=== PATIENT | male | born 1980 | race Hispanic/Latino ===

== ENCOUNTER 2017-06-23 18:54 | Emergency (ER) | payer SELFPAY | END 2017-06-23 20:27 | disposition left against medical advice (07) | LOC: ERS 18:54 | DX: Z53.21 Procedure and treatment not carried out due to patient leaving prior to being seen by health care provider (principal) ==

== ENCOUNTER 2017-08-20 05:29 | Emergency (ER) | payer SELFPAY ==
[2017-08-20] MEDS ORDERED: Ketorolac Tromethamine 60 MG/2 ML VIAL ONE (06:21)
== END 2017-08-20 06:35 | disposition home or self-care (01) ==
LOC: ERS 05:29
DX: K02.9 Dental caries, unspecified (principal); F17.210 Nicotine dependence, cigarettes, uncomplicated
CPT/HCPCS: 96372; J1885

== ENCOUNTER 2018-11-10 13:54 | Emergency (ER) | payer SELFPAY ==
[2018-11-10] MEDS ORDERED: Metoclopramide HCl 10 MG/2 ML VIAL ONE (14:25)
[2018-11-10] MEDS ORDERED: diphenhydrAMINE 50 MG/ML VIAL ONE (14:25)
[2018-11-10 14:43] LABS: #Basophils 0.1 thou/uL (0.0-0.2); #Eosinphils 0.3 thou/uL (0.0-0.7); #Monocytes 0.5 thou/uL (0.11-0.59); #Neutrophils 4.5 thou/uL (1.40-6.50); %Basophils 1.2 % (0.0-1.0); %Eosinophils 4.5 % (0.0-10.0); %Monocytes 7.2 % (0.0-10.0); Hemoglobin 13.5 g/dL (14.0-18.0); Mean Corpuscular HGB CONC 33.6 g/dL (32.0-36.0); Mean Corpuscular Hemoglobin 30.2 pg (27.0-31.0); Mean Platelet Volume 7.6 fL (7.4-10.4); Platelet Count 222 thou/uL (130-400); RBC Distribution Width 12.5 % (11.5-14.5); Red Blood Cell (RBC) Count 4.47 mill/uL (4.70-6.10); White Blood Cell (WBC) Count 7.4 thou/uL (4.8-10.8)
[2018-11-10 15:04] LABS: ALT (SGPT) 23 U/L (8-55); AST (SGOT) 16 U/L (5-34); Albumin 4.2 g/dL (3.5-5.0); Alkaline Phosphatase 69 U/L (40-150); Anion Gap 11 mmol/L (10-20); BUN (Urea Nitrogen) 9 mg/dL (8.9-20.6); Bilirubin, Total 0.4 mg/dL (0.2-1.2); Calc. Creatinine Clearance 0 mL/min (70-130); Carbon Dioxide 25 mmol/L (22-29); Chloride 106 mmol/L (98-107); Estimated GFR-MDRD 80; Globulin 2.5 g/dL (2.4-3.5); Glucose 108 mg/dL (70-105); Protein, Total 6.7 g/dL (6.0-8.3); Sodium 138 mmol/L (136-145)
--- NOTE | 2018-11-10 15:04 | CT ---
CT OF THE BRAIN WITHOUT CONTRAST: Date: 11/10/18 COMPARISON: None. HISTORY: Right-sided headache and right jaw pain. TECHNIQUE: Multiple contiguous axial images were obtained in a CT of the brain without contrast. FINDINGS: The brain is normal in morphology and attenuation without focal lesions or confluent areas of infarct ion. There is no evidence of hydrocephalus, intracranial hemorrhage, or extra-axial fluid collection. The calvarium and overlying soft tissues are unremarkable. The visualized paranasal sinuses and masto id air cells are well aerated. IMPRESSION: No evidence of acute intracranial abnormality. POS: [facility]
[2018-11-10] MEDS ORDERED: methylPREDNISolone Sod Succ/PF 125 MG/2 ML VIAL ONE (15:34)
--- NOTE | 2018-11-12 16:49 | EKG ---
Test Reason : Blood Pressure : / mmHG Vent. Rate : 059 BPM Atrial Rate : 059 BPM P-R Int : 162 ms QRS Dur : 100 ms QT Int : 418 ms P-R-T Axes : 060 002 007 degrees QTc Int : 413 ms Sinus bradycardia Otherwise normal ECG Confirmed by ELY ALVARENGA D.O. ([id number]), market editor SHEILA GUTIERREZ ([id number]) on 11/12/2018 4:48:50 PM Referred By: Confirmed By:ELY ALVARENGA D.O.
== END 2018-11-10 16:49 | disposition home or self-care (01) ==
LOC: ERS 13:54
DX: G43.909 Migraine, unspecified, not intractable, without status migrainosus (principal); F17.210 Nicotine dependence, cigarettes, uncomplicated
CPT/HCPCS: 70450; 80053; 84484; 85025; 93005; 96365; 96375; J1200; J2765; J2930

== ENCOUNTER 2018-11-13 01:42 | Emergency (ER) | payer SELFPAY ==
[2018-11-13] MEDS ORDERED: Acetaminophen 500 MG TAB ONE (02:26)
[2018-11-13] MEDS ORDERED: Metoclopramide HCl 10 MG/2 ML VIAL ONE (03:50)
[2018-11-13] MEDS ORDERED: diphenhydrAMINE 50 MG/ML VIAL ONE (03:50)
--- NOTE | 2018-11-13 08:18 | CT ---
PRELIMINARY REPORT/[facility]/EMERGENCY AFTER HOURS PROCEDURE: EXAM: CT Neck With Contrast EXAM DATE/TIME: 11/13/2018 2:34 AM CLINICAL HISTORY: 38 years old, male; Patient HX: 38 y/o m presents to ED C/O x2 days of worsening throat pain. Associa roge with [facility], dysphagia. PT denies dyspnea, fever, otalgia, cough, nasal congestion TECHNIQUE: Imaging protocol: Axial computed tomography images of the neck with intravenous contrast. Coronal and sagittal reformatted images were created and reviewed. COMPARISON: No relevant prior studies available. FINDINGS: Nasopharynx: Normal. Oropharynx: Normal. No significant tonsillar enlargement. Hypopharynx: Normal. Larynx: Normal. Normal epiglottis. Retropharyngeal space: Normal. Submandibular/Parotid glands: Normal. Glands are normal in size. Thyroid: Normal. No enlarged or calcified nodules. Lymph nodes: Normal. No lymphadenopathy. Trachea: Visualized trachea is unremarkable. Lungs: Normal as visualized. Bones/joints: Normal. No acute fracture. Soft tissues: Normal. No significant soft tissue swelling. IMPRESSION: No acute findings. Thank you for allowing us to participate in the care of your patient. Dictated and Authenticated by: Surendra Francis MD 11/13/2018 3:33 AM Central Time ([place] & [place]) FINAL REPORT EMERGENT AFTER HOURS CT OF THE NECK WITH CONTRAST: FINDINGS/IMPRESSION: I agree with the findings and impression given in the preliminary report per [facility] physician. 1. No evidence of acute abnormality of the neck. 2. 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
[2018-11-13] MEDS ORDERED: ISOVUE-370 76%-LOCM 1 ML ONE (13:53)
== END 2018-11-13 05:00 | disposition home or self-care (01) ==
LOC: ERS 01:42
DX: R51 Headache (principal); R68.84 Jaw pain; F17.210 Nicotine dependence, cigarettes, uncomplicated
CPT/HCPCS: 70491; 96365; 96375; J1200; J2765; Q9966

== ENCOUNTER 2020-04-08 07:58 | Emergency (ER) | payer SELFPAY ==
[2020-04-08] MEDS ORDERED: Bupivacaine 0.5% 10 ML VIAL ONE (08:27)
== END 2020-04-08 08:48 | disposition home or self-care (01) ==
LOC: ERS 07:58
DX: K04.7 Periapical abscess without sinus (principal); Z87.891 Personal history of nicotine dependence
CPT/HCPCS: 64400; J3490

== ENCOUNTER 2020-08-21 06:13 | Emergency (ER) | payer SELFPAY ==
[2020-08-21] MEDS ORDERED: Ketorolac Tromethamine 30 MG/ML VIAL ONE ×2 (06:40→06:41)
[2020-08-21] MEDS ORDERED: HYDROcodone/Acetaminophen 10/325 mg Tablet ONE (06:40)
== END 2020-08-21 07:33 | disposition home or self-care (01) ==
LOC: ERS 06:13
DX: K04.7 Periapical abscess without sinus (principal); F17.210 Nicotine dependence, cigarettes, uncomplicated
CPT/HCPCS: 96372; 99283; J1885

== ENCOUNTER 2023-02-28 00:16 | Emergency (ER) | payer SELFPAY ==
[2023-02-28] MEDS ORDERED: Ketorolac Tromethamine 30 MG/ML VIAL ONE (01:23)
[2023-02-28] MEDS ORDERED: HYDROcodone/Acetaminophen 10/325 mg Tablet ONE (01:24)
== END 2023-02-28 01:45 | disposition home or self-care (01) ==
LOC: ERS 00:16
DX: K04.7 Periapical abscess without sinus (principal); K08.89 Other specified disorders of teeth and supporting structures; F17.210 Nicotine dependence, cigarettes, uncomplicated
CPT/HCPCS: 96372; 99283; J1885

== ENCOUNTER 2023-05-12 22:17 | Emergency (ER) | payer MEDICAID, SELFPAY ==
[~2023-05-12 22:17] MED LIST: Iopamidol-370 76% 500 ML MDV (1 ML CHARGE) ONE
[2023-05-12] MEDS ORDERED: HYDROcodone/Acetaminophen 5/325 mg Tablet ONE (23:23)
[2023-05-12] MEDS ORDERED: Ketorolac Tromethamine 30 MG (1 mL) VIAL ONE (23:32)
[2023-05-12 23:55] LABS: #Basophils 0.1 thou/uL (0.0-0.2); #Eosinphils 0.6 thou/uL (0.0-0.7); #Monocytes 0.8 thou/uL (0.11-0.59); #Neutrophils 5.5 thou/uL (1.40-6.50); %Basophils 0.9 % (0.0-1.0); %Eosinophils 5.5 % (0.0-10.0); %Lymphocytes 29.2 % (21.0-51.0); %Monocytes 8.2 % (0.0-10.0); %Neutrophils 55.7 % (42.0-75.0); Hematocrit 42.5 % (42.0-52.0); Hemoglobin 14.8 g/dL (14.0-18.0); Mean Corpuscular HGB CONC 34.8 g/dL (32.0-36.0); Mean Corpuscular Hemoglobin 31.3 pg (27.0-31.0); Mean Corpuscular Volume 89.9 fl (78.0-98.0); Mean Platelet Volume 9.8 fL (7.4-10.4); Platelet Count 261 10x3/uL (130-400); RBC Distribution Width 13.1 % (11.5-14.5); Red Blood Cell (RBC) Count 4.73 mill/uL (4.70-6.10)
[2023-05-12] MEDS ORDERED: Hydrocodone-Acetamin 15 ML UDCUP ONE (23:56)
[2023-05-13 00:03] LABS: Anion Gap 11 mmol/L (10-20); BUN (Urea Nitrogen) 9 mg/dL (8.9-20.6); Calc. Creatinine Clearance 0 mL/min (70-130); Calcium 8.7 mg/dL (7.8-10.44); Carbon Dioxide 30 mmol/L (22-29); Chloride 101 mmol/L (98-107); Estimated GFR 88; Glucose 117 mg/dL (70-105); Potassium 3.7 mmol/L (3.5-5.1); Sodium 138 mmol/L (136-145)
== END 2023-05-13 01:07 | disposition home or self-care (01) ==
LOC: ERS 22:17
DX: K04.7 Periapical abscess without sinus (principal); F17.210 Nicotine dependence, cigarettes, uncomplicated
CPT/HCPCS: 36415; 70487; 80048; 83605; 85025; 96374; J1885; Q9967

== ENCOUNTER 2023-05-13 18:51 | Emergency (ER) | payer MEDICAID ==
[2023-05-13] MEDS ORDERED: Amoxicillin/Potassium Clav 875 MG TAB ONE (21:55)
[2023-05-13] MEDS ORDERED: Ketorolac Tromethamine 30 MG (1 mL) VIAL ONE (21:55)
[2023-05-13] MEDS ORDERED: HYDROcodone/Acetaminophen 5/325 mg Tablet ONE (21:57)
== END 2023-05-13 22:52 | disposition home or self-care (01) ==
LOC: ERS 18:51
DX: K04.7 Periapical abscess without sinus (principal); F17.210 Nicotine dependence, cigarettes, uncomplicated
CPT/HCPCS: 36415; 70487; 80048; 83605; 85025; 96372; 96374; 99282; J1885; Q9967

== ENCOUNTER 2023-06-19 02:36 | Emergency (ER) | payer MEDICAID ==
[2023-06-19] MEDS ORDERED: Ketorolac Tromethamine 30 MG (1 mL) VIAL ONE (02:51)
[2023-06-19] MEDS ORDERED: HYDROcodone/Acetaminophen 5/325 mg Tablet ONE (02:52)
== END 2023-06-19 03:08 | disposition home or self-care (01) ==
LOC: ERS 02:36
DX: K08.89 Other specified disorders of teeth and supporting structures (principal); F17.210 Nicotine dependence, cigarettes, uncomplicated
CPT/HCPCS: 96372; 99282; J1885